=== PATIENT | female | born 1965 | race Caucasian/White ===

== ENCOUNTER 2016-07-15 12:20 | Inpatient (IN) | payer OTHER ==
[~2016-07-15] VITALS: Ht 162.6 cm; Wt 87.3 kg
--- NOTE | ~2016-07-15 | EKG ---
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 : 1965 Requested By: Santiago Florian Order Number: [id number] MD: Michael Vivar Measurements Intervals [place] Rate: 165 P: 261 MD: 97 QRS: 0 QRSD: 162 T: -83 QT: 305 QTc: 506 Interpretive Statements Atrial flutter with a rapid ventricular response Nonspecific ST segment abnormality No previous ECG available for comparison Electronically Signed On 07-17-2016 15:39:38 CDT by Michael Vivar [email or web address] <ELECTRONICALLY SIGNED> By: Michael Vivar MD, [facility] 07/17/16 1539 1239 1239 Michael Vivar MD, FACC /EPI
--- NOTE | ~2016-07-15 | EKG ---
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
--- NOTE | ~2016-07-15 | HC ---
[facility] [place] [address] [address] [place] [address] CONSULTATION Name: STARKURIEL Room #: 201-P [facility] IN M.R.#: [id number] Admission: 07/15/16 Attend Phys: Alexia Ramos Discharge: Date of : 63 Report #: [id number] THIS REPORT FOR: //name// CC: [facility] physician/PCP Alexia Ramos REASON FOR CONSULTATION: Atrial fibrillation, atrial flutter. HISTORY OF PRESENT ILLNESS: The patient is a 51-year-old with no significant past medical history who presents to her primary care with complaints of shortness of breath off and on since April. She reports that last Monday she had a little bit of chest discomfort, but none since then. 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 She did not think much of this. She did notice shortness of breath when she would be when she would go out dancing with her boyfriend. At time, she felt so short of breath and weak that she could not continue dancing. She also had extreme leg fatigue. REVIEW OF SYSTEMS: GENERAL: No fevers or chills. HEENT: No blurred vision. CARDIOVASCULAR: As above. PULMONARY: No productive cough. GASTROINTESTINAL: No nausea or vomiting. GENITOURINARY: No dysuria. MUSCULOSKELETAL: No myalgias or arthralgias. ENDOCRINE: No heat or cold intolerance. PAST MEDICAL HISTORY: None. SOCIAL HISTORY: None. FAMILY HISTORY: Atrial fibrillation. MEDICATIONS: None. PHYSICAL EXAMINATION: VITAL SIGNS: Reviewed. Temperature 36.9, pulse 94 up to 170s, respiration 16, blood pressure 118/78, sats 99%. GENERAL: No acute distress. HEENT: Oropharynx clear. Sclerae, anicteric. NECK: Supple, with no thyromegaly. HEART: Tachycardic and irregular. There are no murmurs, rubs, gallops. She does not have elevated jugular venous pressure. LUNGS: Clear to auscultation bilaterally. ABDOMEN: Soft, nontender, nondistended with no hepatosplenomegaly. [facility] [address] [place] [address] CONSULTATION Name: URIEL STARK Emer[place] Room #: [address] [place] [address] [place] [facility].#: [id number] Admission: 07/15/16 Attend Phys: Alexia Ramos Discharge: Date of : 63 Report #: [id number] EXTREMITIES: No clubbing, cyanosis, edema. NEUROLOGIC: Cranial nerves 2-12 are intact. LABORATORY DATA: White cell count 7.6, hemoglobin 14.4, platelets 233. Sodium 142, potassium 3.8, BUN 13, creatinine 0.7. Troponin negative. TSH 1.3. Urine opiate screen was positive. EKG shows both atrial fibrillation and typical atrial flutter, telemetry shows same. ASSESSMENT AND PLAN: In summary, the patient is a 51-year-old with new onset atrial fibrillation and typical atrial flutter. To anticoagulate the patient, I will initiate Lovenox at this time. Eventually, she will need a standard anticoagulant such as Pradaxa 150 twice a day. In terms of her rates I will load the patient with IV digoxin 0.5 x 1 now followed by 0.25 later tonight and then start 0.25 oral digoxin in the morning. I will give her 75 mg of Toprol. I will discontinue the amiodarone as I have concerns with chemically cardioverting the patient given her unknown duration of atrial fibrillation as this could precipitate a stroke. If these regimens do not kick in quickly, we may be able to give her some IV digoxin overnight. Thank you for allowing me to participate in her care. <ELECTRONICALLY SIGNED> By: Gene Larson MD 07/18/16 1552 1743 1315 Gene Larson MD /nt
--- NOTE | ~2016-07-15 | EKG ---
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
--- NOTE | ~2016-07-15 | EKG ---
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 : 1965 Requested By: Alexia Ramos Order Number: [id number] MD: Michael Vivar Measurements Intervals [place] Rate: 161 P: 256 AR: 90 QRS: 4 QRSD: 172 T: -83 QT: 355 QTc: 581 Interpretive Statements Atrial flutter with a rapid ventricular response Nonspecific ST segment abnormality No previous ECG available for comparison Electronically Signed On 07-17-2016 15:40:28 CDT by Michael Vivar [email or web address] <ELECTRONICALLY SIGNED> By: Michael Vivar MD, [facility] 07/17/16 1540 1315 15 Michael Vivar MD, FACC /EPI
--- NOTE | ~2016-07-15 | 2DMMODE ---
[facility] [address] [place] [address] 2 D/M-MODE ECHOCARDIOGRAM Name: URIEL STARK Room #: 201-P ADM IN M.R.#: [id number] Admission: 07/15/16 Attend Phys: Alexia Sev[place] Discharge: Date of : 63 Date of Service: 07/18/16 0945 Report #: [id number] THIS REPORT FOR: //name// APPROVED REPORT Study performed: 07/18/2016 07:34:46 EXAM: Comprehensive 2D, Doppler, and color-flow Echocardiogram Patient Location: Echo lab Room #: 201 Status: routine Other Information Study Quality: Good Indications Atrial Fibrillation 2D Dimensions RVDd: 31.61 mm LVEF(%): 54.08 (>50%) IVSd: 9.19 (7-11mm) LVOT Diam: 22.18 (18-24mm) LVDd: 48.65 mm PWd: 9.43 (7-11mm) Ascending Ao: 31.09 (22-36mm) LVDs: 35.02 (25-40mm) Aortic Root: 28.42 mm IVC: 16.00 mm Jhaveri's LVEF: 54.08 % Volumes Left Atrial Volume (Systole) Single Plane 4CH: 50.23 mL Single Plane 2CH: 53.25 mL LA ESV Index: 30.00 mL/m2 Aortic Valve AoV Peak Cesar.: 1.23 m/s AO Peak Gr.: 6.07 mmHg LVOT Max P.02 mmHg LVOT Max V: 0.87 m/s BEAN Vmax: 2.72 cm2 Mitral Valve E/A Ratio: 2.2 MV Decel. Time: 175.25 ms MV E Max Cesar.: 1.03 m/s MV A Cesar.: 0.46 m/s MV PHT: 50.82 ms IVRT: 101.50 ms [facility] [place] [address] 2 D/M-MODE ECHOCARDIOGRAM Name: URIEL STARK Room #: 201-P [facility] IN ..#: [id number] Admission: 07/15/16 Attend Phys: Alexia Sevilla Discharge: Date of : 63 Date of Service: 07/18/16 0945 Report #: [id number] Pulmonary Valve PV Peak Cesar.: 0.74 m/s PV Peak Gr.: 2.19 mmHg Pulmonary Vein P Vein S: 0.56 m/s P Vein A: 0.23 m/s P Vein D: 0.41 m/s P Vein A Dur.: 83.0 msec P Vein S/D Ratio: 1.37 Tricuspid Valve TR Peak Cesar.: 2.32 m/s RAP Estimate: 5.00 mmHg TR Peak Gr.: 21.47 mmHg PA Pressure: 26.00 mmHg Left Ventricle The left ventricle is normal size. There is normal LV segmental wall motion. There is normal left ventricular wall thickness. The left ventricular systolic function is normal. The left ventricular ejection fraction is within the normal range. LVEF is 50-55%. The left ventricular diastolic function is normal. Right Ventricle The right ventricle is normal size. The right ventricular systolic function is normal. Atria The left atrium size is normal. Right atrium is at the upper limits of normal. Aortic Valve The aortic valve is normal in structure. No aortic regurgitation is present. There is no aortic valvular stenosis. Mitral Valve The mitral valve is normal in structure. Mild mitral regurgitation. No evidence of mitral valve stenosis. Tricuspid Valve The tricuspid valve is normal in structure. There is mild tricuspid regurgitation. The right atrial pressure is estimated at 5 mmHg. There is no pulmonary hypertension. Pulmonic Valve The pulmonary valve is normal in structure. Trace pulmonic regurgitation. [facility] [address] [place] [address] 2 D/M-MODE ECHOCARDIOGRAM Name: URIEL STARK Room #: 201-P [facility] IN ..#: [id number] Admission: 07/15/16 Attend Phys: Alexia Sevilla Discharge: Date of : 63 Date of Service: 07/18/16 0945 Report #: [id number] Great Vessels The aortic root is normal in size. IVC is normal in size and collapses >50% with inspiration. Pericardium There is no pericardial effusion. <Conclusion> The left ventricular systolic function is normal. LVEF is 50-55%. Normal LV segmental wall motion. The left ventricular diastolic function is normal. The aortic valve is normal in structure. No aortic stenosis or insufficiency. The mitral valve is normal in structure. Mild mitral regurgitation. Pulmonary artery pressure could not be reliably ascertained There is no pericardial effusion. <ELECTRONICALLY SIGNED> By: Michael Vivar MD, FACC 07/18/1645 4 4 Michael Vivar MD, FACC /INF
[2016-07-15 12:39] VITALS: BP 106/88
[2016-07-15 12:56] LABS: ABSOLUTE NEUTROPHILS 3.1 thou/uL (1.4-8.2); BASOPHILS 0.7 % (0.0-2.0); EOSINOPHILS 2.8 % (0.0-3.0); HEMATOCRIT 42.9 % (37.0-47.0); HEMOGLOBIN 14.5 gm/dL (12.0-15.0); LYMPHOCYTES 47.5 % (24.0-44.0); MCH 32.1 pg (26.0-34.0); MCHC 33.8 g/dL (28.0-37.0); MCV 94.9 fL (80.0-100.0); MONOCYTES 8.4 % (1.0-8.0); PLATELET COUNT 233 thou/uL (150-400); POLYS 40.6 % (36.0-66.0); RBC 4.52 mil/uL (4.20-5.00); RDW 13.6 % (10.5-14.5); WBC 7.6 thou/uL (4.0-11.0)
[2016-07-15 12:57] LABS: MANUAL DIFF NO
[2016-07-15 13:06] LABS: ANION GAP 13 mmol/L (7-16); BUN 13 mg/dL (7-18); CALCIUM 9.4 mg/dL (8.5-10.1); CHLORIDE 104 mmol/L (98-107); CO2 25 mmol/L (21-32); CREATININE 0.7 mg/dL (0.6-1.0); GLUCOSE 103 mg/dL (74-106); POTASSIUM 3.8 mmol/L (3.5-5.1); SODIUM 142 mmol/L (136-145)
[2016-07-15 13:18] LABS: ALBUMIN 4.1 g/dL (3.4-5.0); ALKALINE PHOSPHATASE 82 U/L (46-116); SGOT 23 U/L (15-37); SGPT 29 U/L (30-65); TOTAL BILIRUBIN 0.6 mg/dL (<0.1-1.0); TOTAL PROTEIN 7.6 g/dL (6.4-8.2); TROPONIN-I < 0.04 ng/mL (<0.04-0.07)
[2016-07-15 14:14] LABS: AMP/METHAMP Negative (Negative); BARBITURATES Negative (Negative); BENZODIAZEPINES Negative (Negative); COCAINE Negative (Negative); METHADONE Negative (Negative); OPIATES POSITIVE (Negative); PCP Negative (Negative); THC Negative (Negative)
[2016-07-15 14:37] VITALS: BP 120/82
[2016-07-15 15:11] VITALS: BP 118/78
[2016-07-15 20:02] VITALS: BP 100/62
[2016-07-15 23:58] VITALS: BP 115/63
[2016-07-16 04:46] VITALS: BP 98/56
[2016-07-16 07:20] VITALS: BP 106/64
[2016-07-16 11:20] VITALS: BP 106/77
[2016-07-16 16:30] VITALS: BP 96/71
[2016-07-16 19:43] VITALS: BP 107/80
[2016-07-16 23:38] VITALS: BP 93/72
[2016-07-17] VITALS (8 sets, daily range): BP systolic 89–130; BP diastolic 57–70
[2016-07-17 05:55] LABS: CHOLESTEROL 165 mg/dL (<200); HDL CHOLESTEROL 73 mg/dL (>40); LDL CHOLESTEROL 76 mg/dL (<100); TC:HDL 2.3 Ratio (Not establshd); TRIGLYCERIDE 84 mg/dL (<150); VLDL 17 mg/dL (<40)
[2016-07-17 05:57] LABS: SERUM ASSESSMENT Clear
[2016-07-17 09:29] LABS: ABSOLUTE NEUTROPHILS 2.8 thou/uL (1.4-8.2); BASOPHILS 0.7 % (0.0-2.0); EOSINOPHILS 2.1 % (0.0-3.0); HEMATOCRIT 44.6 % (37.0-47.0); LYMPHOCYTES 49.8 % (24.0-44.0); MCH 32.1 pg (26.0-34.0); MCHC 33.6 g/dL (28.0-37.0); MCV 95.5 fL (80.0-100.0); MONOCYTES 6.2 % (1.0-8.0); PLATELET COUNT 216 thou/uL (150-400); POLYS 41.2 % (36.0-66.0); RBC 4.67 mil/uL (4.20-5.00); RDW 13.5 % (10.5-14.5); WBC 6.8 thou/uL (4.0-11.0)
[2016-07-17 09:30] LABS: CALCIUM 9.3 mg/dL (8.5-10.1); CREATININE 0.8 mg/dL (0.6-1.0); MANUAL DIFF NO; POTASSIUM 4.1 mmol/L (3.5-5.1)
[2016-07-17 21:40] LABS: MAGNESIUM 1.6 mg/dL (1.8-2.4); PHOSPHORUS 4.7 mg/dL (2.5-4.9)
[2016-07-17 22:09] LABS: FOLIC ACID 15.5 ng/mL (8.6-58.9)
[2016-07-18 04:32] VITALS: BP 105/69
[2016-07-18 07:05] VITALS: BP 101/61
[2016-07-18 11:15] VITALS: BP 108/61
[2016-07-18 12:10] LABS: FREE T4 1.24 ng/dL (0.82-1.77)
[2016-07-18 15:15] VITALS: BP 101/56
[2016-07-18 20:40] VITALS: BP 115/64
[2016-07-19 03:27] VITALS: BP 96/48
[2016-07-19 04:50] LABS: CALCIUM 8.6 mg/dL (8.5-10.1); CREATININE 0.6 mg/dL (0.6-1.0); MAGNESIUM 1.8 mg/dL (1.8-2.4); PHOSPHORUS 4.1 mg/dL (2.5-4.9)
[2016-07-19 07:15] VITALS: BP 109/61
[2016-07-19 07:19] VITALS: BP 96/48
[2016-07-19 07:26] VITALS: BP 96/48
[2016-07-19] MEDS ORDERED: PACERONE 200 M200 M1 PO (08:45)
[2016-07-19] MEDS ORDERED: PRADAXA150 MG PO (08:45)
[2016-07-19] MEDS ORDERED: VITAMIN B-1100 M2 PO (08:45)
== END 2016-07-19 10:40 | disposition home or self-care (01) | DRG 310 ==
LOC: ER 12:20 → 2N 13:44 → EROBS 13:44 → 2N 14:40
PROVIDERS: Hospitalist; Internal Medicine Cardiovascular Disease; Nurse Practitioner Family; Physician Assistant
PROC: B244YZZ Ultrasonography of Right Heart using Other Contrast (ICD-10-PCS; principal; 2016-07-17)
PROC: 02H633Z Insertion of Infusion Device into Right Atrium, Percutaneous Approach (ICD-10-PCS; principal; 2016-07-17)
DX: I48.91 Unspecified atrial fibrillation (principal); I47.1 Supraventricular tachycardia; I42.6 Alcoholic cardiomyopathy; I48.3 Typical atrial flutter; F10.20 Alcohol dependence, uncomplicated; Z79.01 Long term (current) use of anticoagulants; Z85.828 Personal history of other malignant neoplasm of skin; Z79.82 Long term (current) use of aspirin; Z82.49 Family history of ischemic heart disease and other diseases of the circulatory system; Z79.899 Other long term (current) drug therapy
CPT/HCPCS: 10081; 27000

== ENCOUNTER → 2016-08-15 | Outpatient (CLI) | payer OTHER ==
[~2016-08-15] MED LIST: PACERONE 200 M200 M1 PO; PRADAXA150 MG PO; VITAMIN B-1100 M2 PO
[2016-08-15 08:00] LABS: HEMATOCRIT 42.6 % (37.0-47.0); HEMOGLOBIN 14.5 gm/dL (12.0-15.0); MCH 32.4 pg (26.0-34.0); MCHC 34.1 g/dL (28.0-37.0); MCV 94.9 fL (80.0-100.0); RBC 4.49 mil/uL (4.20-5.00); RDW 13.2 % (10.5-14.5); WBC 5.4 thou/uL (4.0-11.0)
[2016-08-15 08:12] LABS: CALCIUM 9.3 mg/dL (8.5-10.1); CREATININE 0.8 mg/dL (0.6-1.0); POTASSIUM 4.3 mmol/L (3.5-5.1)
[2016-08-15 08:17] LABS: ALBUMIN 3.9 g/dL (3.4-5.0); TOTAL BILIRUBIN 0.5 mg/dL (<0.1-1.0); TOTAL PROTEIN 7.5 g/dL (6.4-8.2)
== END ==
LOC: CAT 07:27
PROVIDERS: Internal Medicine Cardiovascular Disease
DX: I48.91 Unspecified atrial fibrillation (principal)

== ENCOUNTER 2016-08-18 06:34 | Observation (INO) | payer OTHER ==
[~2016-08-18] VITALS: Ht 165.1 cm; Wt 79.4 kg
[2016-08-18] MEDS ORDERED: TOPROL XL25 MG PO (06:57)
[2016-08-18 07:02] VITALS: BP 115/72
[2016-08-18 07:50] LABS: APTT 26.9 Seconds (24.5-32.8); PROTIME 10.5 Seconds (9.3-11.4)
[2016-08-18 14:27] VITALS: BP 115/72
[2016-08-18 15:58] VITALS: BP 108/73
[2016-08-18 20:07] VITALS: BP 116/70
[2016-08-18 23:53] VITALS: BP 96/55
[2016-08-19 05:04] VITALS: BP 118/79
[2016-08-19 08:00] VITALS: BP 111/69
[2016-08-19 08:01] VITALS: BP 118/79
[2016-08-19 08:02] VITALS: BP 118/79
== END 2016-08-19 10:15 | disposition home or self-care (01) ==
LOC: CATH 06:34 → 2N 13:53
PROVIDERS: Internal Medicine Cardiovascular Disease
DX: I48.0 Paroxysmal atrial fibrillation (principal); I48.3 Typical atrial flutter; R06.02 Shortness of breath; R53.1 Weakness
CPT/HCPCS: 62110; 62900; 65020; 65040; 65043; 70005